=== PATIENT | female | born 1970 | race Caucasian/White ===

== ENCOUNTER 2018-02-09 10:12 | Day surgery (SDC) | payer OTHER ==
[2018-02-09] MEDS ORDERED: PROPOFOL INJ 200 MG/20 ML VIAL IV ONE ×2 (11:04→11:06)
[2018-02-09 12:14] VITALS: BP 125/88
--- NOTE | 2018-02-09 12:40 | Operative Report ---
Operative Report DATE OF SURGERY: 02/09/18 Operative Report: The risks, benefits and alternatives of the procedure including risks of bleeding, perforation requiring surgery are explained to the patient in detail and informed consent is obtained. Patient is taken back to the endoscopy suite and placed in the left, lateral decubital position. Timeout was called. Propofol medication is administered. A rectal examination is done which did not reveal any masses, tears or fissures. An Olympus videoscope was inserted into the patient's rectum. The scope was then carefully advanced all the way to the cecum. The cecum was identified by the usual anatomical landmarks including the ileocecal valve as well as the appendiceal office. Photodocumentation is obtained. The scope was then sequentially pulled back via the various segments of the colon including the ascending colon, hepatic flexure, transverse colon, splenic flexure, descending colon and finally into the rectosigmoid portions of the colon. Retroflexion maneuvers performed. The risks benefits and alternatives of the procedure explained to the patient in detail and informed consent is obtained.A GIF Olympus video scope was inserted into the patient's mouth and hypopharynx, the esophagus is identified intubated and insufflated ,the scope was then advanced through the esophagus stomach and duodenum, retroflexion maneuver is done, the esophagus stomach and first and second portions of the duodenum examined PREOPERATIVE DIAGNOSIS: Personal history of polyps. Change of bowel habits with associated abdominal distention. Dysphagia POSTOPERATIVE DIAGNOSIS: Right side colon Information status post biopsy rule out lymphocytic, microscopic, collagenous colitis. Internal hemorrhoids. Gastritis status post biopsy rule out Helicobacter pylori. Esophagitis with mild esophageal stricture and evidence of abnormal tissue status post biopsy rule out Mendez's esophagus OPERATION: Colonoscopy with biopsy. EGD with biopsy SURGEON: MELVI ENCINAS ANESTHESIA: LMAC TISSUE REMOVED OR ALTERED: As noted above. COMPLICATIONS: None. ESTIMATED BLOOD LOSS: None. INTRAOPERATIVE FINDINGS: As noted above. PROCEDURE: Patient tolerated the procedure well. No immediate postprocedure complications are noted. Patient discharged in good condition. Discharge date 02/09/2018. Discharge diet: Regular. Discharge activity: Regular. We will wait on the pathology results. Follow-up in 2-3 weeks. Patient is instructed to call the office or proceed to the emergency room should there be any further problems or questions.
== END 2018-02-09 12:00 | disposition home or self-care (01) ==
LOC: END 10:12
PROVIDERS: ATTEND Internal Medicine Gastroenterology
DX: K22.2 Esophageal obstruction (principal); K20.9 Esophagitis, unspecified; K52.9 Noninfective gastroenteritis and colitis, unspecified; K64.8 Other hemorrhoids; K29.70 Gastritis, unspecified, without bleeding; K44.9 Diaphragmatic hernia without obstruction or gangrene; K63.89 Other specified diseases of intestine; Z86.010 Personal history of colon polyps
CPT/HCPCS: 43239; 45380; 88305 ×2; 88313 ×2; J2704; 813

== ENCOUNTER 2018-03-02 09:40 | Day surgery (SDC) | payer OTHER ==
[~2018-03-02 09:40] MED LIST: PROPOFOL INJ 200 MG/20 ML VIAL IV ONE
[2018-03-02 11:45] VITALS: BP 130/82
--- NOTE | 2018-03-02 13:05 | Operative Report ---
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 COMPLICATIONS: None. ESTIMATED BLOOD LOSS: None. INTRAOPERATIVE FINDINGS: As noted above. PROCEDURE: Patient tolerated the procedure well. No immediate postprocedure complications are noted. Patient discharged in good condition. Discharge date 03/02/2018. Discharge diet: Regular. Discharge activity: Regular. 2-3 week follow-up to discuss findings. Patient is instructed call the office or proceed to the emergency room should there be any further problems or questions.
== END 2018-03-02 11:15 | disposition home or self-care (01) ==
LOC: END 09:40
PROVIDERS: ATTEND Internal Medicine Gastroenterology
DX: K22.719 Barrett's esophagus with dysplasia, unspecified (principal); K21.9 Gastro-esophageal reflux disease without esophagitis; R06.02 Shortness of breath; K58.9 Irritable bowel syndrome, unspecified; K63.89 Other specified diseases of intestine; K64.8 Other hemorrhoids; Z13.89 Encounter for screening for other disorder; Z79.899 Other long term (current) drug therapy
CPT/HCPCS: 43270; J2704; 731

== ENCOUNTER 2018-07-09 15:21 | Emergency (ER) | payer OTHER ==
--- NOTE | 2018-07-09 15:31 | ER Document Report ---
ED Medical Screen (RME) - General Chief Complaint: Psych Problem Stated Complaint: ANXIETY Time Seen by Provider: 07/09/18 15:27 Mode of Arrival: Ambulatory Information source: Patient Notes: pt presents with mobile crisis for anxiety hx bipolar, schizophrenia. Mobile crisis, Favio Elder, is with patient and will stay with patient until report given to nurse. I have greeted and performed a rapid initial assessment of this patient. A comprehensive ED assessment and evaluation of the patient, analysis of test results and completion of the medical decision making process will be conducted by additional ED providers. TRAVEL OUTSIDE OF THE [place] IN LAST 30 DAYS: No - Related Data Allergies/Adverse Reactions: No Known Allergies Allergy (Verified 07/09/18 15:28) Past Medical History - Past Medical History Cardiac Medical History: Denies: Hx Coronary Artery Disease, Hx Heart Attack, Hx Hypertension Pulmonary Medical History: Denies: Hx Asthma, Hx Bronchitis, Hx COPD, Hx Pneumonia Neurological Medical History: Denies: Hx Cerebrovascular Accident, Hx Seizures Musculoskeltal Medical History: Denies Hx Arthritis Past Surgical History: Reports: Hx Hysterectomy - Immunizations Hx Diphtheria, Pertussis, Tetanus Vaccination: Yes Influenza Administration Date for 04/2017 - 09/2017 Season: 04/27/17 Physical Exam - Vital signs Vitals: Temp Pulse Resp BP Pulse Ox 97.6 F 116 H 16 125/70 98 07/09/18 15:34 07/09/18 15:34 07/09/18 15:34 07/09/18 15:34 07/09/18 15:34 Course - Vital Signs Vital signs: Temp Pulse Resp BP Pulse Ox 97.6 F 116 H 16 125/70 98 07/09/18 15:34 07/09/18 15:34 07/09/18 15:34 07/09/18 15:34 07/09/18 15:34 Doctor's Discharge - Discharge Referrals: DILLAN DUQUE NP-C [Primary Care Provider] - Follow up as needed
--- NOTE | 2018-07-09 16:19 | RADIOLOGY REPORT (SQ) ---
EXAM DESCRIPTION: CHEST 2 VIEWS COMPLETED DATE/TIME: 07/09/2018 4:03 pm REASON FOR STUDY: anxiety psych COMPARISON: None. EXAM PARAMETERS: NUMBER OF VIEWS: two views TECHNIQUE: Digital Frontal and Lateral radiographic views of the chest acquired. RADIATION DOSE: NA LIMITATIONS: none FINDINGS: LUNGS AND PLEURA: No opacities, masses or pneumothorax. No pleural effusion. MEDIASTINUM AND HILAR STRUCTURES: No masses or contour abnormalities. HEART AND VASCULAR STRUCTURES: Heart normal size. No evidence for failure. BONES: No acute findings. HARDWARE: None in the chest. OTHER: No other significant finding. IMPRESSION: NO ACUTE RADIOGRAPHIC FINDING IN THE CHEST. TECHNICAL DOCUMENTATION: JOB ID: [id number] [employer]- All Rights Reserved Reading location - IP/workstation name: [email or web address]
[2018-07-09 16:44] LABS: ABSOLUTE LYMPHOCYTES (AUTO) 1.2 10^3/uL (0.5-4.7); ABSOLUTE MONOCYTES (AUTO) 0.4 10^3/uL (0.1-1.4); ABSOLUTE NEUT (AUTO) 5.6 10^3/uL (1.7-8.2); BASOPHILS % (AUTO) 0.6 % (0-2); EOSINOPHILS % (AUTO) 0.1 % (0-6); HEMATOCRIT 42.5 % (36.0-47.0); HEMOGLOBIN 14.6 g/dL (12.0-15.5); LYMPHOCYTES % (AUTO) 16.3 % (13-45); MEAN CORPUSCULAR HEMOGLOBIN 33.4 pg (27.0-33.4); MEAN CORPUSCULAR HGB CONC 34.3 g/dL (32.0-36.0); MEAN CORPUSCULAR VOLUME 97 fl (80-97); MONOCYTES % (AUTO) 5.5 % (3-13); PLATELET COUNT 221 10^3/uL (150-450); RED BLOOD COUNT 4.36 10^6/uL (3.72-5.28); RED CELL DISTRIBUTION WIDTH 13.1 % (11.5-14.0); SEGMENTED NEUTROPHILS % (AUTO) 77.5 % (42-78); TOTAL CELLS COUNTED % (AUTO) 100 %; WHITE BLOOD COUNT 7.2 10^3/uL (4.0-10.5)
[2018-07-09 17:05] LABS: ALANINE AMINOTRANSFERASE 83 U/L (9-52); ALBUMIN 5.2 g/dL (3.5-5.0); ALKALINE PHOSPHATASE 99 U/L (38-126); ANION GAP 17 (5-19); ASPARTATE AMINO TRANSFERASE 73 U/L (14-36); BILIRUBIN,DIRECT 0.3 mg/dL (0.0-0.4); BILIRUBIN,TOTAL 1.6 mg/dL (0.2-1.3); BLOOD UREA NITROGEN 21 mg/dL (7-20); CARBON DIOXIDE 25 mmol/L (22-30); CHLORIDE 102 mmol/L (98-107); GLUCOSE 112 mg/dL (75-110); POTASSIUM 4.6 mmol/L (3.6-5.0); SODIUM 143.9 mmol/L (137-145); TOTAL PROTEIN 8.1 g/dL (6.3-8.2)
--- NOTE | 2018-07-09 17:06 | PSYCHOLOGICAL NOTE ---
Psych Note - Psych Note Date seen by psych provider: 07/09/18 Time seen by psych provider: 16:25 Psych Note: Reason for Consult: Paranoia Patient reports that she came to [facility] because she "wanted to get help." She reports she has 2 children and that is "cruel" in "I am really tired." She reports that she has not been sleeping for the last 2 days. She reports that she used to be a "free spirit" however her has slowly changed her over the years. She reports that she loves her children all her heart they are ages 13 and 16 however they frequently treat her as her is taught them. She discloses that her has now retired and he is gone into [employer] and since they have she has been having significant difficulties with him tracking her. She reports she now has a track phone because he was tracking her phone. She starts to speak about pins being recording devices. When asked that she feels safe at home she reports that she does. She reports that she thinks she needs medications. She confirms that she has been on medications in the past and states that Effexor was "bad it made me insane." She confirms other medications she never really stayed on long enough to see if it works. She states that she does not think she is bipolar from what she is read about it. She continues to discuss how she was tried on Lamictal at one point however it made her very angry. Clinician spoke with Favio of [facility] mobile workers' compensation hearings officer. He reports it has taken 2 days to convince the patient to come to the hospital. He reports extreme paranoia "she will picking tech a piece of dog hair and say it is a wire...some dirt from the ground and say it is a microphone." Patient has painters tape taped up all over her marroquin to "stop" the survivance equipment she believes is throughout her home. He disclosed the current even has been going on for about 3 days and only getting worse. She did relapse on alcohol after from her . Patient is alert and orientated to person, place, time. Mood is anxious with congruent affect. Patient frequently hides her face behind her hair and sitting sideways on the bed with her legs pulled close to her body. Patient denies suicidal and homicidal ideation. Delusions of paranoia are noted. Thought processes are tangential and frequently derail and become disorganized. Eye contact is poor. Conversational speech is slightly pressured. Intellectual abilities appear to be within the average range. Attention and concentration is poor. Insight, judgment, impulse control is poor. Medication accommodations per [facility]'s contracted psychiatrist Dr. Seth SCHILLING are as follows Zyprexa 10 mg once now Zyprexa 5 mg twice daily Cogentin 1 mg daily 296.44 (F31.2) Bipolar with psychotic features Impression/plan: Patient is recommended for [facility] for mental health observation overnight. Patient is presenting paranoia and tangential thought processes. Patient's thought processes easily derailed and becomes disorganized. Medication recommendations have been provided. Patient will be reevaluated. Dr. Layne was consulted and the care management this patient; attending physician is agreement with recommendations and disposition.
[2018-07-09] MEDS ORDERED: OLANZAPINE 5 MG TABLET PO ONE (17:11)
--- NOTE | 2018-07-09 17:34 | ER Document Report ---
ED Psych Disorder / Suicide - General Chief Complaint: Psych Problem Stated Complaint: ANXIETY Time Seen by Provider: 07/09/18 15:27 Mode of Arrival: Ambulatory Notes: Patient is here she says because she is feeling very stressed. from her . Feels as if he is "bugging" my phones. Unable to sleep and also eating poorly. She denies suicidal ideation or homicidal patient. Denies hallucinations. She is currently on Adderall and, perhaps Lexapro, but says she has not had any of her medications for a couple of days. Patient complains of her mouth being very dry because she has not had anything to drink. Patient is exhibiting flight of ideas, unable to stay focused on a single topic. Speech is rapid, manic. TRAVEL OUTSIDE OF THE [place] IN LAST 30 DAYS: No - Related Data Allergies/Adverse Reactions: No Known Allergies Allergy (Verified 07/09/18 15:28) Past Medical History - General Information source: Patient - Social History Smoking Status: Unknown if Ever Smoked Family History: Reviewed & Not Pertinent Patient has suicidal ideation: No Patient has homicidal ideation: No Past Surgical History: Reports: Hx Hysterectomy - Immunizations Hx Diphtheria, Pertussis, Tetanus Vaccination: Yes Review of Systems - Review of Systems Notes: REVIEW OF SYSTEMS: CONSTITUTIONAL : Denies fever. EENT: Denies eye, ear, nose or mouth or throat pain or other symptoms. CARDIOVASCULAR: Denies chest pain. RESPIRATORY: Denies cough, chest congestion, or shortness of breath. GASTROINTESTINAL: Denies abdominal pain or nausea, vomiting, or diarrhea. GENITOURINARY: Denies difficulty or painful urinating, urinary frequency, blood in urine. MUSCULOSKELETAL: Denies back or neck pain. Denies joint pain or swelling. SKIN: Denies rash or skin lesions. NEUROLOGICAL: Denies LOC or altered mental status. Denies headache. Denies sensory loss or motor deficits. ALL OTHER SYSTEMS REVIEWED AND NEGATIVE. Physical Exam - Vital signs Vitals: Temp Pulse Resp BP Pulse Ox 97.6 F 116 H 16 125/70 98 07/09/18 15:34 07/09/18 15:34 07/09/18 15:34 07/09/18 15:34 07/09/18 15:34 Interpretation: Tachycardic - No history of thyroid disease. Notes: PHYSICAL EXAMINATION: GENERAL: Well-appearing, in no acute distress., but anxious, somewhat disjointed conversation, unable to maintain focus on a single issue for topic. Speech is manic. HEAD: Atraumatic, normocephalic. EYES: Pupils equal round and reactive to light, extraocular movements intact. ENT: oropharynx clear without exudates. Moist mucous membranes. NECK: Normal range of motion, supple. LUNGS: Breath sounds clear and equal bilaterally. HEART: Regular rate and rhythm without murmurs. Heart rate 116 in triage. ABDOMEN: Soft, nontender. No guarding or rebound. No masses. BACK: No tenderness throughout entire back. EXTREMITIES: Normal range of motion without pain. NEUROLOGICAL: Normal speech, normal gait. Normal sensory, motor, and reflex exams. Awake, alert, and oriented x3. Cranial nerves normal. PSYCH: Hyper, manic. Some paranoid thoughts. Denies suicidal ideation or homicidal ideation. Denies hallucinations. SKIN: Warm, dry, no rashes. Course - Re-evaluation Re-evalutation: 07/09/18 17:39 Mental health has assessed the patient and she will be kept overnight on an involuntary commitment. Medications have been prescribed (Zyprexa and Cogentin) - Vital Signs Vital signs: Temp Pulse Resp BP Pulse Ox 97.6 F 116 H 16 125/70 98 07/09/18 15:34 07/09/18 15:34 07/09/18 15:34 07/09/18 15:34 07/09/18 15:34 - Laboratory Result Diagrams: 07/09/18 16:15 07/09/18 16:15 Laboratory results interpreted by me: 07/09/18 16:15 BUN 21 H Glucose 112 H Total Bilirubin 1.6 H AST 73 H ALT 83 H Albumin 5.2 H Discharge - Discharge Referrals: DILLAN DUQUE, THANG-C [Primary Care Provider] - Follow up as needed
[2018-07-09 18:07] LABS: FREE T4 (FREE THYROXINE) 1.17 ng/dL (0.78-2.19)
[2018-07-09] MEDS: OLANZAPINE 5 MG TABLET PO SCH (18:10)
[2018-07-09] MEDS: BENZTROPINE MESYLATE 1 MG TABLET PO SCH (18:12)
[2018-07-09 18:21] LABS: THYROID STIMULATING HORMONE 0.57 uIU/mL (0.47-4.68)
--- NOTE | 2018-07-09 21:27 | EKG REPORT ---
SEVERITY:- BORDERLINE ECG - SINUS TACHYCARDIA PROBABLE LEFT ATRIAL ABNORMALITY : Confirmed by: Minnie Tucker MD 09-Jul-2018 21:26:40
[2018-07-10 08:35] LABS: URINE BARBITURATES SCREEN NEGATIVE; URINE BENZODIAZEPINES SCREEN UNCONFIRMED POSITIVE; URINE COCAINE SCREEN NEGATIVE; URINE MARIJUANA (THC) SCREEN NEGATIVE; URINE METHADONE SCREEN NEGATIVE; URINE PHENCYCLIDINE SCREEN NEGATIVE
--- NOTE | 2018-07-10 09:34 | ER Document Report ---
Doctor's Note Notes: 07/10/18 09:33 48-year-old female with past medical history as recorded who presents today with some anxiety/stress after recent separation according to the patient. Patient supposedly has had some rapid speech and flight of ideas on initial interviews. Labs as recorded with an increase in the patient's liver enzymes. Positive benzos on the urine analysis. Awaiting psychiatric evaluation. Vital signs are stable. Patient denies any complaints at this time. 07/10/18 10:24 Patient has been accepted at [facility]. We will wait for the Tylenol and aspirin levels before the patient is transferred. Patient has no abdominal pain.
[2018-07-10] MEDS: BENZTROPINE MESYLATE 1 MG TABLET PO SCH (10:11)
[2018-07-10] MEDS: OLANZAPINE 5 MG TABLET PO SCH (10:12)
[2018-07-10 10:32] VITALS: BP 118/61
[2018-07-10 10:43] LABS: ACETAMINOPHEN < 10 ug/mL (10-30); SALICYLATE < 1.0 mg/dL (2.0-20.0)
--- NOTE | 2018-07-16 15:45 | PSYCHOLOGICAL NOTE ---
Psych Note - Psych Note Date seen by psych provider: 07/10/18 Time seen by psych provider: 08:00 Psych Note: Reason for Consult: Paranoia Check-in conducted with patient Clinician notes when gathering paperwork at the nurses station patient is observed sitting style on her bed carrying on a conversation with herself. When she started laughing and clinician turned and looked the patient immediately started to attempt to explain why she was laughing by stating she was talking to the clinician (Clinician is still not in the patient's room and is only at the nurses station). Patient is then observed pacing and looking around her room for an unknown object. Medication accommodations per [facility]'s contracted psychiatrist Dr. Seth SCHILLING are as follows Zyprexa 10 mg once now Zyprexa 5 mg twice daily Cogentin 1 mg daily 296.44 (F31.2) Bipolar with psychotic features Impression/plan: Patient is recommended for continued IVC. Patient is presenting paranoia and tangential thought processes. Patient's thought processes easily derailed and becomes disorganized. today the patient appears to have decompensated and is responding to internal stimuli. Medication recommendations have been provided. Patient was accepted to [facility]; transp ortation was been requested. Dr. Layne was consulted and the care management this patient; attending physician is agreement with recommendations and disposition.
== END 2018-07-10 12:02 ==
LOC: ER 15:21
DX: F31.9 Bipolar disorder, unspecified (principal); F41.9 Anxiety disorder, unspecified; Z63.5 Disruption of family by separation and divorce; Z79.899 Other long term (current) drug therapy
CPT/HCPCS: 36415; 71046; 80053; 80307; 81025; 84439; 84443; 85025; 93005; 93010; 99285